=== PATIENT | female | born 1975 | race Caucasian/White ===

== ENCOUNTER 2018-08-10 05:37 | Day surgery (SDC) | END 2018-08-10 12:30 | disposition home or self-care (01) ==

== ENCOUNTER 2019-03-07 06:14 | Day surgery (SDC) | payer OTHER ==
[2019-03-07] VITALS (11 sets, daily range): BP systolic 93–116; BP diastolic 58–74; PULSE 54–63; RESP 12–19; Ht 167.6 cm; Wt 78.8 kg
[~2019-03-07] VITALS: Ht 167.6 cm; Wt 78.8 kg
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
[2019-03-07] MEDS ORDERED: BUPIVACAINE 0.5% (SDV) 30 ML INJ ONE (06:53)
[2019-03-07] MEDS ORDERED: POLYMYXIN/BACITRACIN 1L IRRIG ONE (06:53)
[2019-03-07] MEDS ORDERED: FENTAnyl 50 MCG/ML VIAL ONE (06:55)
[2019-03-07] MEDS ORDERED: PROPOFOL 20 ML ONE (06:55)
[2019-03-07] MEDS ORDERED: LIDOCAINE 2% (SDV) 5 ML INJ ONE (06:55)
[2019-03-07] MEDS ORDERED: CLINDAMYCIN 900 MG/D5W (PMX) 50 ML IVPB ONE (06:55)
[2019-03-07] MEDS ORDERED: MIDAZOLAM 1 MG/ML 2 ML INJ ONE (06:55)
[2019-03-07] MEDS ORDERED: DESFLURANE 15 MIN ONE (07:00)
--- NOTE | 2019-03-07 07:33 | HPN ---
Date/Time of Note Date/Time of Note DATE: 03/07/19 TIME: 07:33 Interval H&P Admission Note Pt. seen H&P reviewed: No system changes JESUS ALBERTO MYERS DPM March 07, 2019 07:33
[2019-03-07] MEDS ORDERED: DEXAMETHASONE 4 MG/ML 5 ML INJ ONE (08:03)
[2019-03-07] MEDS ORDERED: ONDANSETRON 4 MG INJ ONE (08:03)
[2019-03-07] MEDS ORDERED: FAMOTIDINE 20 MG INJ ONE (08:03)
[2019-03-07] MEDS ORDERED: HYDROmorphONE 1 MG/5 ML IV SYRINGE IV PRN ×2 (08:30)
[2019-03-07] MEDS ORDERED: MEPERIDINE 25 MG INJ IV PRN (08:30)
[2019-03-07] MEDS ORDERED: OXYCODONE/ACETAMINOPHEN (5/325) TAB PO PRN ×2 (08:30)
--- NOTE | 2019-03-07 08:40 | SIPON ---
Date/Time of Note Date/Time of Note DATE: 03/07/19 TIME: 08:35 Operative Report Preoperative Diagnosis RIGHT foot bunion deformity RIGHT foot pain Postoperative Diagnosis RIGHT foot bunion deformity RIGHT foot pain Operation/Procedure Performed RIGHT foot bunionectomy with internal fixation Surgeon see signature line assistant track coach None Anesthesia: general Estimated blood loss: 0 - 10 ml's Transfusion Required none Specimen Bone right foot Grafts/Implants none Complications none JESUS ALBERTO MYERS DPM March 07, 2019 08:40
--- NOTE | 2019-03-07 08:46 | PAC ---
Date/Time of Note Date/Time of Note DATE: 03/07/19 TIME: 08:46 Post-Anesthesia Notes Post-Anesthesia Note Last documented vital signs Vital Signs Date Temp Pulse Resp B/P (MAP) Pulse Ox O2 O2 Flow FiO2 Time Delivery Rate 03/07/19 98.2 08:41 03/07/19 63 16 100/64 100 Mask 6.0 08:37 (76) Activity: WNL Respiratory function: WNL Cardiovascular function: WNL Mental status: Baseline Pain reasonably controlled: Yes Hydration appropriate: Yes Nausea/Vomiting absent: Yes STACI MULLEN March 07, 2019 08:46
[2019-03-07] MEDS: ONDANSETRON 4 MG INJ IV PRN ×2 (09:00→10:14)
[2019-03-07] MEDS: HYDROmorphONE 1 MG/5 ML IV SYRINGE IV PRN ×2 (09:05→09:13)
--- NOTE | 2019-03-07 09:17 | OPR ---
DATE OF OPERATION: 03/07/2019 PREOPERATIVE DIAGNOSES: 1. Severe painful right foot bunion deformity. 2. Right foot pain. POSTOPERATIVE DIAGNOSES: 1. Severe painful right foot bunion deformity. 2. Right foot pain. OPERATION PERFORMED: Surgical bunionectomy, right foot with internal fixation. SURGEON: Rafiq Myers DPM [employer] AND SALES RECORD SUPERVISOR: None. ANESTHESIA: General. ESTIMATED BLOOD LOSS: Less than 5 mL. HEMOSTASIS: Pneumatic ankle tourniquet. COMPLICATIONS: None. SPECIMEN: Bone from the right foot. INDICATIONS FOR SURGERY: The patient is a pleasant 43-year-old female who has been suffering with pa in in the right foot for many years, worsened for the past 9 months. Aggravating factors include chris es, walking, activities, bending of the joints and pressure on the joints. The patient has had bunio n surgery on the left foot for similar reasons and has had success after clinical and radiographic ex amination. Recommendation was made for surgical correction of right foot bunion deformity. Risks an d complications of this type of surgery were discussed with patient in great detail including but not limited to postoperative infection, postoperative pain, chronic disability, short term disability, g ait disturbance, nonunion, malunion, delayed union, hardware failure, need for additional surgical pr ocedures, deep venous thrombosis, limb loss and loss of life. The patient understands and acknowledg es understanding of the discussion and agrees to procedure. Informed consent was obtained, signed an d placed in the chart. No guarantee or warranty was given or implied as to the outcome of the proced ure, either in verbal or written form. The patient was then taken to the operating room and was plac ed on the operating table in the supine position. The patient was placed under general anesthesia by the anesthesiologist. A 10-pound bag was placed in the ipsilateral hip to rotate the foot from the varus position. A pneumatic ankle tourniquet was applied to the right ankle. I injected the right f oot with 10 mL of 0.5% Marcaine plain. Right foot was then scrubbed, prepped and draped in usual ase ptic manner. An Esmarch bandage was utilized to exsanguinate the right foot and the pneumatic ankle tourniquet was inflated to 250 mmHg pressure. Attention was directed to the dorsal aspect of the fir st metatarsophalangeal joint where a 5 cm incision was made over the first MPJ medial lateral to the extensor hallucis longus tendon. Using a #10 blade. Bleeders were cauterized as necessary. Dissect ion was deepened through subcutaneous layers and joint capsule with care being taken to protect and i dentify vital neurovascular structures. A linear capsulotomy was made using #15 blade and dissection was made periosteally exposing the first metatarsophalangeal joint. A large bony bump was present o n the dorsal and medial aspect of the first metatarsal head. A power saw was used to cut the medial bony prominence. Next a [employer] V-type osteotomy was made at the head of the first metatarsal with t he apex distally and arms plantar proximal and dorsal proximally. Next, the capital fragment was tra nslated laterally to the desired position and temporarily fixated using a 0.045 K-wire. A guidewire for 3.0 headless screw was inserted and a size 18 headless screw was inserted from [employer] using lag technique for fixation. Next, all K-wires were removed and using a power saw, the medial remaining s helf of bone was cut and passed to the back table. All rough edges were smoothed using a power bur. Surgical correction was checked and was excellent. The wound was then flushed with copious amounts of sterile normal saline. The joint capsule was then closed using 4-0 Vicryl. The subcutaneous laye r was closed using 4-0 Vicryl and the skin was closed using 5-0 Monocryl in subcuticular stitch patte rn. Steri-Strips were applied. Postop injection was given another 10 mL of 0.5% Marcaine plain. St erile dressing was applied to the right foot. The pneumatic ankle tourniquet was deflated at this ti me and prompt hyperemic response was noted to the digits of the right foot. The patient will be take n to the recovery room with vital signs stable and vascular status intact to the right lower extremit y. The patient will be discharged after postoperative monitoring. Partial weightbearing right foot with postop shoe. Orders were written. Prescription was submitted electronically to the pharmacy an d the patient will be followed up in my office in 1 week. Dictated By: RAFIQ POLLACK Conf#: [id number] DID#: [id number] CC: RAFIQ MYERS DPM;*EndCC*
== END 2019-03-07 10:25 | disposition home or self-care (01) ==
LOC: SDS 06:14
PROVIDERS: ATTEND Podiatrist Foot & Ankle Surgery
DX: M21.611 Bunion of right foot (principal)
CPT/HCPCS: 28296; 80053; 85025; 88304; 88311; J1100; J1170; J2250; J2405; J3010; Z7512; Z7610